=== PATIENT | male | born 1960 | race African-American/Black ===

== ENCOUNTER 2016-07-28 10:20 | Emergency (ER) | payer OTHER ==
--- NOTE | 2016-07-28 10:41 | ER Document Report ---
ED Medical Screen (RME) - General Stated Complaint: SHOULDER AND NECK PAIN Time seen by provider: 10:38 Mode of Arrival: Ambulatory Information source: Patient Notes: 55 yo male presnets to ed for left shoulder and neck pain for a month. He came into day because he could not get in to see [facility] TRAVEL OUTSIDE OF THE [place] IN LAST 30 DAYS: No - HPI Onset: Other - month Onset/Duration: Gradual Quality of pain: Dull Severity: Mild Pain Level: 1 Exacerbated by: Movement, Other - reaching out sleeping on it Relieved by: Denies Similar symptoms previously: Yes Recently seen / treated by doctor: No - Related Data Smoking: Cigarettes, Less than 1 pack/day - 3-4 cigs, Other Frequency of alcohol use: Social Drug Abuse: None Allergies/Adverse Reactions: No Known Allergies Allergy (Verified 12/19/15 08:46) Past Medical History Pulmonary Medical History: Reports: Hx Bronchitis - Immunizations Hx Diphtheria, Pertussis, Tetanus Vaccination: Yes Physical Exam - Vital signs Vitals: Temp Pulse Resp BP Pulse Ox 97.8 F 64 16 113/69 98 07/28/16 10:34 07/28/16 10:34 07/28/16 10:34 07/28/16 10:34 07/28/16 10:34 Course - Vital Signs Vital signs: Temp Pulse Resp BP Pulse Ox 97.8 F 64 16 113/69 98 07/28/16 10:34 07/28/16 10:34 07/28/16 10:34 07/28/16 10:34 07/28/16 10:34
--- NOTE | 2016-07-28 12:12 | ER Document Report ---
ED Extremity Problem, Upper - General Chief Complaint: Shoulder Injury Stated Complaint: SHOULDER AND NECK PAIN Time seen by provider: 12:08 Mode of Arrival: Ambulatory Notes: This is a 55-year-old male that presents today with intermittent left shoulder pain. States that this is been going on for the past month. He characterizes the pain as a dull ache that radiates down to his fingers. Pain is aggravated with weightbearing activities. Denies any joint swelling, paresthesia, fever or any injury. He also admits to cervical neck pain. TRAVEL OUTSIDE OF THE [place] IN LAST 30 DAYS: No - Related Data Allergies/Adverse Reactions: No Known Allergies Allergy (Verified 12/19/15 08:46) Past Medical History - General Information source: Patient - Social History Smoking Status: Current Every Day Smoker Frequency of alcohol use: Social Drug Abuse: None Family History: Reviewed & Not Pertinent Patient has suicidal ideation: No Patient has homicidal ideation: No Pulmonary Medical History: Reports: Hx Bronchitis - Immunizations Hx Diphtheria, Pertussis, Tetanus Vaccination: Yes Review of Systems - Review of Systems Constitutional: denies: Fever EENT: denies: Eye pain Cardiovascular: denies: Chest pain Respiratory: denies: Cough, Hurts to breathe Gastrointestinal: denies: Abdomen distended, Abdominal pain Musculoskeletal: See HPI Physical Exam - Vital signs Vitals: Temp Pulse Resp BP Pulse Ox 97.8 F 64 16 113/69 98 07/28/16 10:34 07/28/16 10:34 07/28/16 10:34 07/28/16 10:34 07/28/16 10:34 - HEENT Head: Normocephalic, Atraumatic Eyes: Normal Conjunctiva: Normal Neck: Normal - Patient has tender cervical neck paraspinal. Patient is able to flex extend and rotate cervical spine against resistance and passively. - Respiratory Respiratory status: No respiratory distress Breath sounds: Normal. No: Rales, Rhonchi, Stridor, Wheezing - Cardiovascular Rhythm: Regular Heart sounds: Normal auscultation - Abdominal Inspection: Normal Distension: No distension Tenderness: Nontender - Extremities General upper extremity: Normal inspection - Patient had good range of motion of upper extremity bilaterally. He could extend and flex abduct and adduct against gravity and resistance. Normal sensation bilaterally, Nontender, Normal ROM, Normal strength General lower extremity: Normal inspection, Nontender, Normal ROM, Normal strength - Neurological Orientation: AAOx4 - Psychological Associated symptoms: Normal affect, Normal mood - Skin Skin Temperature: Warm Skin Moisture: Dry Skin Color: Normal Course - Re-evaluation Re-evalutation: 07/28/16 12:20 Patient was given multiple opportunities to ask questions. He stated that he would follow up with primary care physician - Vital Signs Vital signs: Temp Pulse Resp BP Pulse Ox 97.6 F 62 14 114/72 98 07/28/16 12:37 07/28/16 12:37 07/28/16 12:37 07/28/16 12:37 07/28/16 12:37 Discharge - Discharge Clinical Impression: Shoulder pain Qualifiers: Laterality: left Chronicity: acute Qualified Code(s): M25.512 - Pain in left shoulder Disposition: HOME, SELF-CARE Additional Instructions: Return to emergency department if symptoms worsen such as joint swelling, fever , chills, loss of sensation to extremity. Follow-up with primary care physician. Prescriptions: Naproxen [Naprosyn 250 mg Tablet] 250 mg PO DAILY PRN #10 tablet PRN Reason: Forms: Return to Work Referrals: [facility] [Provider Group] - Follow up as needed
[2016-07-28 12:38] VITALS: BP 114/72
== END 2016-07-28 12:38 | disposition home or self-care (01) ==
LOC: ER 10:20
DX: M25.512 Pain in left shoulder (principal); M54.2 Cervicalgia; F17.200 Nicotine dependence, unspecified, uncomplicated
CPT/HCPCS: 99283

== ENCOUNTER 2016-08-05 09:24 | Emergency (ER) | payer OTHER ==
[2016-08-05 09:30] VITALS: BP 119/72
--- NOTE | 2016-08-05 10:07 | ER Document Report ---
ED Extremity Problem, Upper - General Chief Complaint: Shoulder Pain Stated Complaint: SHOULDER PAIN Notes: The patient is a 55-year-old male who presents requesting a work note that he can return back to work restrictions. He strips floors for living. He was seen in the ER 1 week ago for left shoulder pain, had a negative x-ray and was prescribed NSAIDs. He said his shoulder pain resolved. Denies injury, numbness , tingling, neck pain or any other complaints at this time. TRAVEL OUTSIDE OF THE [place] IN LAST 30 DAYS: No - Related Data Allergies/Adverse Reactions: No Known Allergies Allergy (Verified 08/05/16 09:36) Past Medical History - General Information source: Patient - Social History Smoking Status: Current Every Day Smoker Chew tobacco use (# tins/day): No Frequency of alcohol use: Occasional Family History: Reviewed & Not Pertinent Patient has suicidal ideation: No Patient has homicidal ideation: No Pulmonary Medical History: Reports: Hx Bronchitis Renal/ Medical History: Denies: Hx Peritoneal Dialysis - Immunizations Hx Diphtheria, Pertussis, Tetanus Vaccination: Yes Review of Systems - Review of Systems Notes: REVIEW OF SYSTEMS: CONSTITUTIONAL: -fevers, -chills EENT: -eye pain, -difficulty swallowing, -nasal congestion CARDIOVASCULAR:-chest pain, -syncope. RESPIRATORY: -cough, -SOB GASTROINTESTINAL: -abdominal pain, - nausea, -vomiting, -diarrhea GENITOURINARY: -dysuria, -hematuria MUSCULOSKELETAL: -back pain, -neck pain SKIN: -rash or skin lesions. HEMATOLOGIC: -easy bruising or bleeding. LYMPHATIC: -swollen, enlarged glands. NEUROLOGICAL: -altered mental status or loss of consciousness, -headache, - neurologic symptoms PSYCHIATRIC: -anxiety, -depression. ALL OTHER SYSTEMS REVIEWED AND NEGATIVE. Physical Exam - Vital signs Vitals: Temp Pulse Resp BP Pulse Ox 97.5 F 57 L 16 119/72 100 08/05/16 09:29 08/05/16 09:29 08/05/16 09:29 08/05/16 09:29 08/05/16 09:29 - Notes Notes: PHYSICAL EXAMINATION: GENERAL: Well-appearing, well-nourished and in no acute distress. HEAD: Atraumatic, normocephalic. EYES: Pupils equal round and reactive to light, extraocular movements intact, sclera anicteric, conjunctiva are normal. ENT: nares patent, oropharynx clear without exudates. Moist mucous membranes. NECK: Normal range of motion, supple without lymphadenopathy LUNGS: Breath sounds clear to auscultation bilaterally and equal. No wheezes rales or rhonchi. HEART: Regular rate and rhythm without murmurs ABDOMEN: Soft, nontender, normoactive bowel sounds. No guarding, no rebound. No masses appreciated. EXTREMITIES: Normal range of motion, no pitting or edema. No cyanosis. Non- tender left shoulder. NEUROLOGICAL: Cranial nerves grossly intact. Normal speech, normal gait. Normal sensory, motor, and reflex exams. PSYCH: Normal mood, normal affect. SKIN: Warm, Dry, normal turgor, no rashes or lesions noted. Course - Re-evaluation Re-evalutation: Patient has full range of motion of his left shoulder. X-ray from last week did not show any fractures or dislocations. No new injuries today. Provided patient with work note to return back to work with no restrictions. - Vital Signs Vital signs: Temp Pulse Resp BP Pulse Ox 97.5 F 57 L 16 119/72 100 08/05/16 09:29 08/05/16 09:29 08/05/16 09:29 08/05/16 09:29 08/05/16 09:29 Discharge - Discharge Clinical Impression: Normal exam Condition: Good Disposition: HOME, SELF-CARE Additional Instructions: You may return to work without any restrictions. Continue to take Motrin for any shoulder pain. Follow-up with orthopedics if the pain worsens. Forms: Return to Work Referrals: [facility] [Provider Group] - Follow up as needed
== END 2016-08-05 10:19 | disposition home or self-care (01) ==
LOC: ER 09:24
DX: M25.512 Pain in left shoulder (principal); F17.210 Nicotine dependence, cigarettes, uncomplicated
CPT/HCPCS: 99281

== ENCOUNTER 2017-08-01 17:06 | Emergency (ER) | payer OTHER ==
--- NOTE | 2017-08-01 17:48 | ER Document Report ---
HPI - HPI Patient complains to provider of: cough x 2 months Onset: Other - 2 months Onset/Duration: Persistent Pain Level: 1 Context: 56 yo smoker male with head congestion for 9 days. Cough for 2 months. No weight loss. No chest pain or shortness of breath. No fever. No nightsweats. No travel outside [place]. Not homeless. Associated Symptoms: None Exacerbated by: Denies Relieved by: Denies - ROS ROS below otherwise negative: Yes Systems Reviewed and Negative: Yes All other systems reviewed and negative Past Medical History - General Information source: Patient - Social History Smoking Status: Current Every Day Smoker Frequency of alcohol use: None Drug Abuse: None Lives with: Family Family History: Reviewed & Not Pertinent Pulmonary Medical History: Reports: Hx Bronchitis Renal/ Medical History: Denies: Hx Peritoneal Dialysis Surgical Hx: Negative - Immunizations Hx Diphtheria, Pertussis, Tetanus Vaccination: Yes Vertical Provider Document - CONSTITUTIONAL Agree With Documented VS: Yes Exam Limitations: No Limitations General Appearance: No Apparent Distress - INFECTION CONTROL TRAVEL OUTSIDE OF THE [place] IN LAST 30 DAYS: No - HEENT HEENT: Normocephalic, Pharyngeal Erythema. negative: Conjuctival Injection, Tympanic Membrane Red - NECK Neck: Supple. negative: Lymphadenopathy-Left, Lymphadenopathy-Right - RESPIRATORY Respiratory: Breath Sounds Normal, No Respiratory Distress O2 Sat by Pulse Oximetry: 98 - CARDIOVASCULAR Cardiovascular: Regular Rate, Regular Rhythm - GI/ABDOMEN Gastrointestinal: Abdomen Soft, Abdomen Non-Tender, No Organomegaly, Normal Bowel Sounds - BACK Back: Normal Inspection - MUSCULOSKELETAL/EXTREMETIES Musculoskeletal/Extremeties: MAEW, FROM - NEURO Level of Consciousness: Awake, Alert, Appropriate - DERM Integumentary: Warm, Dry, No Rash Course - Re-evaluation Re-evalutation: 08/01/17 19:26 08/01/17 19:12 Patient states that he works at a [employer] and thinks that the high level amount ammonia exposure without a mask so he ran out is making the symptoms worse. I also advised him at length to quit smoking. 08/01/17 19:13 Chest x-ray and labs are negative. His chest x-ray did look like he has COPD and I discussed this with the patient as the reason he needs to quit smoking. I also gave him some masks to reduce the exposure to the [place] ammonia. Also I advised him to take some antihistamines in case some of this is allergy. - Vital Signs Vital signs: Temp Pulse Resp BP Pulse Ox 100.0 F 96 18 124/85 98 08/01/17 17:17 08/01/17 17:17 08/01/17 17:17 08/01/17 17:17 08/01/17 17:17 - Laboratory Result Diagrams: 08/01/17 18:20 08/01/17 18:20 Discharge - Discharge Clinical Impression: Bronchitis Upper respiratory infection Qualifiers: URI type: unspecified viral URI Qualified Code(s): J06.9 - Acute upper respiratory infection, unspecified Condition: Good Disposition: HOME, SELF-CARE Instructions: Bronchitis ([facility]), Use of Diphenhydramine, Stop Smoking ([facility]), Upper Respiratory Illness ([facility]) Additional Instructions: wear the mask at work to limit exposure to the ammonia in the air at the [employer] quit smoking copy of labs and chest xray report given to you see your [facility] for follow up Prescriptions: Albuterol Sulfate [Proair HFA Inhalation Aerosol 8.5 gm MDI] 2 puff IH Q3HP PRN #1 [email or web address] PRN Reason: Forms: Return to Work
[2017-08-01 18:35] LABS: ABSOLUTE LYMPHOCYTES (AUTO) 1.1 10^3/uL (0.5-4.7); ABSOLUTE MONOCYTES (AUTO) 0.7 10^3/uL (0.1-1.4); ABSOLUTE NEUT (AUTO) 5.1 10^3/uL (1.7-8.2); BASOPHILS % (AUTO) 0.4 % (0-2); EOSINOPHILS % (AUTO) 0.1 % (0-6); HEMATOCRIT 36.8 % (37.9-51.0); HEMOGLOBIN 12.2 g/dL (13.5-17.0); LYMPHOCYTES % (AUTO) 15.6 % (13-45); MEAN CORPUSCULAR HEMOGLOBIN 33.4 pg (27.0-33.4); MEAN CORPUSCULAR HGB CONC 33.2 g/dL (32.0-36.0); MEAN CORPUSCULAR VOLUME 101 fl (80-97); MONOCYTES % (AUTO) 10.6 % (3-13); PLATELET COUNT 224 10^3/uL (150-450); RED BLOOD COUNT 3.65 10^6/uL (4.35-5.55); RED CELL DISTRIBUTION WIDTH 12.6 % (11.5-14.0); SEGMENTED NEUTROPHILS % (AUTO) 73.3 % (42-78); TOTAL CELLS COUNTED % (AUTO) 100 %
[2017-08-01 18:52] LABS: ALANINE AMINOTRANSFERASE 30 U/L (21-72); ALBUMIN 4.3 g/dL (3.5-5.0); ALKALINE PHOSPHATASE 85 U/L (38-126); ANION GAP 8 (5-19); ASPARTATE AMINO TRANSFERASE 31 U/L (17-59); BILIRUBIN,DIRECT 0.1 mg/dL (0.0-0.4); BILIRUBIN,TOTAL 0.4 mg/dL (0.2-1.3); BLOOD UREA NITROGEN 8 mg/dL (7-20); CALCIUM 9.2 mg/dL (8.4-10.2); CARBON DIOXIDE 28 mmol/L (22-30); CHLORIDE 102 mmol/L (98-107); GLUCOSE 98 mg/dL (75-110); POTASSIUM 3.9 mmol/L (3.6-5.0); SODIUM 138.4 mmol/L (137-145); TOTAL PROTEIN 7.3 g/dL (6.3-8.2)
--- NOTE | 2017-08-01 18:58 | RADIOLOGY REPORT (SQ) ---
EXAM DESCRIPTION: CHEST PA/LAT COMPLETED DATE/TIME: 08/01/2017 6:51 pm REASON FOR STUDY: cough . sick for 2 months COMPARISON: 09/24/2015 EXAM PARAMETERS: NUMBER OF VIEWS: two views TECHNIQUE: Digital Frontal and Lateral radiographic views of the chest acquired. RADIATION DOSE: NA LIMITATIONS: none FINDINGS: LUNGS AND PLEURA: No opacities, masses or pneumothorax. No pleural effusion. MEDIASTINUM AND HILAR STRUCTURES: No masses or contour abnormalities. HEART AND VASCULAR STRUCTURES: Heart normal size. No evidence for failure. BONES: No acute findings. HARDWARE: None in the chest. OTHER: No other significant finding. IMPRESSION: NO SIGNIFICANT RADIOGRAPHIC FINDING IN THE CHEST. TECHNICAL DOCUMENTATION: JOB ID: [id number] [email or web address] All Rights Reserved
[2017-08-01] MEDS ORDERED: ALBUTEROL SULFATE 0.083% NEB 2.5 MG/3 ML AMPUL NEB ONE (19:05)
[2017-08-01 20:01] VITALS: BP 126/76
== END 2017-08-01 20:01 | disposition home or self-care (01) ==
LOC: ER 17:06
DX: J06.9 Acute upper respiratory infection, unspecified (principal); J40 Bronchitis, not specified as acute or chronic; R05 Cough; F17.200 Nicotine dependence, unspecified, uncomplicated
CPT/HCPCS: 36415; 71046; 80053; 85025; 94640; 99283